=== PATIENT | female | born 1995 | race Caucasian/White ===

== ENCOUNTER 2021-05-02 16:25 | Observation (INO) | payer OTHER, SELFPAY ==
[2021-05-02 17:27] LABS: Basophils Percent Auto 0.3 % (0.2-1.2); Eosinophils Percent Auto 0.2 % (0-4.4); Hemoglobin 11.2 g/dL (12.0-15.0); Immature Granulocyte Absolute 0.14 K/mm3 (0.00-0.031); Immature Granulocyte Percent A 1.1 % (0-0.5); Lymphocytes Absolute Auto 0.59 K/mm3 (0.9-3.2); Lymphocytes Percent Auto 4.5 % (18.3-44.2); Mean Corpuscular HGB Conc 32.9 g/dl (32-36); Mean Corpuscular Hemoglobin 29.7 pg (26-34); Mean Corpuscular Volume 90.2 fl (80-100); Mean Platelet Volume 9.7 fl (7.4-10.4); Monocytes Absolute Auto 0.5 K/mm3 (0.1-0.6); Monocytes Percent Auto 4.1 % (2.6-8.5); Neutrophils Absolute Auto 11.9 K/mm3 (1.3-6.7); Neutrophils Percent Auto 89.8 % (45.5-73.1); Platelet Count Result 296 k/mm3 (150-375); Red Blood Count 3.77 M/mm3 (4.2-5.4); Red Cell Distribution Width 13.2 % (11.5-14.5); White Blood Count 13.3 K/mm3 (4.5-10.0)
[2021-05-02 17:28] VITALS: TEMP 37.3
[2021-05-02] MEDS: DEXTROSE 5%/LACTATED RINGERS 1,000 ML 150 ML IV CONT (17:29)
[2021-05-02] MEDS: ONDANSETRON INJ 4 MG/2 ML VIAL IV PUSH (17:30)
[2021-05-02] MEDS: FAMOTIDINE 20 MG/2 ML VIAL IV PUSH (17:30)
--- NOTE | 2021-05-02 17:42 | OBADM ---
This patient, Nayeli Galeana, admitted to the OB room [facility] for observation. Patient/family oriented to hospital policies and general routines including ID bracelet, bed and alarms, visiting hours, pain management, procedures, bathroom and other care routines, personal items, smoking policy, room service/diet, and visiting hours. Patient/Family are encouraged to report perceived risks to care and to ask questions if they do not understand what they are told or what they should do.
--- NOTE | 2021-05-02 17:45 | PC.NURSE ---
Pt came in for n/v and dfm, pt sees an OB in [place] but came here d/t it being closer to where she is living. She woke up around 0700 and started vomiting and has had a hard time drinking water today. She states she hasn't felt the baby move since this am. SAdela LARA called, orders received for IV of D5LR, zofran,pepcid,CBC,cmp.
[2021-05-02 17:46] LABS: Add Urine Microscopic? YES; Appearance Urine Cloudy (Clear); Bacteria Urine Trace /hpf; Bilirubin Urine Negative (Negative); Blood Urine Negative (Negative); Color Urine Yellow (Yellow); Glucose Urine UA Negative (Negative); Ketones Urine 2+ mg/dL (Negative); Leukocyte Esterase Ur 2+ LEU/UL (Negative); Mucus Urine Few /lpf; Nitrate Urine Negative (Negative); Protein Urine 2+ mg/dL (Negative); Specific Grav Ur 1.028 (1.001-1.035); Squamous Epithelial Cell Urine Many /hpf (Few); Urobilinogen Urine Negative mg/dL (<2.0); WBC Urine 31-50 /hpf
[2021-05-02 17:48] LABS: Alanine Aminotransferase 12 U/L (4-35); Alkaline Phosphatase 101 U/L (38-126); Anion Gap 11 mmol/L (8-16); Aspartate Amino Transferase 17 U/L (14-36); Bilirubin,Total 0.4 mg/dL (0.2-1.3); Blood Urea Nitrogen 5 mg/dL (7-17); Calcium 8.7 mg/dL (8.4-10.2); Carbon Dioxide 18 mmol/L (22-30); Chloride 106 mmol/L (98-107); Estimated Glomerular Filt Rate > 60; Glucose 97 mg/dL (65-110); Potassium 3.6 mmol/L (3.4-5.0); Sodium 135 mmol/L (137-145)
--- NOTE | 2021-05-02 18:30 | PC.NURSE ---
Tma Enriquez CNM on unit. UA results reviewed. Orders received to D/C home with Zofran prescription if no nausea or vomiting after eating.
--- NOTE | 2021-05-04 07:03 | PM.OBTRLD ---
OB - Triage/Final Diagnosis Visit Information Date of evaluation: 05/02/21 Reason for evaluation: other (nausea) Comments/Additional reasons for admission: I have assessed the risk for this patient, Nayeli Galeana, and determined that she would benefit from observation care. Evaluation Laboratory results: Laboratory Tests 05/02/21 05/02/21 05/02/21 17:14 17:14 17:14 WBC 13.3 H RBC 3.77 L Hgb 11.2 L Hct 34.0 L MCV 90.2 MCH 29.7 MCHC 32.9 RDW 13.2 Plt Count 296 MPV 9.7 Immature Gran % (Auto) 1.1 H Neut % (Auto) 89.8 H Lymph % (Auto) 4.5 L [place] % (Auto) 4.1 Eos % (Auto) 0.2 Baso % (Auto) 0.3 Lymph # (Auto) 0.59 L [place] # (Auto) 0.5 Eos # (Auto) 0.0 Baso # (Auto) 0.0 Abs Immat Gran (auto) 0.14 H Absolute Neuts (auto) 11.9 H Absolute Nucleated RBC 0.0 Nucleated RBC % 0.0 Sodium 135 L Potassium 3.6 Chloride 106 Carbon Dioxide 18 L Anion Gap 11 BUN 5 L Creatinine 0.30 L Estim Creat Clear Calc Not Reportable Estimated GFR > 60 Glucose 97 Calcium 8.7 Total Bilirubin 0.4 AST 17 ALT 12 Alkaline Phosphatase 101 Total Protein 7.0 Albumin 4.0 Urine Color Yellow Urine Appearance Cloudy H Urine pH 5.0 Ur Specific [place] 1.028 Urine Protein 2+ H Urine Glucose (UA) Negative Urine Ketones 2+ H Ur Blood (Man) Negative Urine Nitrate Negative Urine Bilirubin Negative Urine Urobilinogen Negative Leukocyte Esterase Rfl 2+ H Urine RBC 6-10 H Urine WBC 31-50 H Ur Squamous Epith Cells Many H Urine Bacteria Trace Urine Mucus Few H
== END 2021-05-02 19:40 | disposition home or self-care (01) ==
PROVIDERS: Advanced Practice Midwife; Admitting Provider Obstetrics & Gynecology; Visit Provider Obstetrics & Gynecology
DX: O99.891 Other specified diseases and conditions complicating pregnancy (principal); R11.0 Nausea; Z3A.28 28 weeks gestation of pregnancy
CPT/HCPCS: 36415; 80053; 81001; 85025; 87086; 87088; 96374; 96375; G0378; G0379; J2405; J7121

== ENCOUNTER 2021-11-17 15:03 | Emergency (ER) | payer OTHER, SELFPAY ==
[2021-11-17 15:07] VITALS: BP 160/59; PULSE 127; RESP 20; TEMP 37; O2SAT 97
--- NOTE | 2021-11-17 15:16 | ED.URI ---
HPI - URI/Sore Throat General Chief Complaint: Upper Respiratory Infection Stated Complaint: sore throat cough congestion Time Seen by Provider: 11/17/21 15:05 Source: patient and RN notes reviewed History of Present Illness HPI Narrative: Patient is a 26-year-old female who presents the urgent care with complaints of a sore throat for 3 days, cough and wheezing. Patient states she is also had a lot of postnasal drainage. Patient is currently breast-feeding. States that she has been out of her inhaler and the wheezing seems to be getting worse. Patient denies of any ill exposures, nausea, vomiting or fever. Patient states that she has been taking Sudafed without any improvement. No other acute complaints. No acute distress noted. Patient aware of the plan of care. Some parts of this dictation were generated by voice recognition software and may contain typographical and/or grammatical inaccuracies. Related Data Home Medications Medication Instructions Recorded Confirmed norethindrone (contraceptive) 0.35 0.35 mg PO DAILY 11/17/21 11/17/21 mg tablet Allergies Allergy/AdvReac Type Severity Reaction Status Date / Time amoxicillin Allergy Intermediate rash Verified 11/17/21 15:16 clavulanic acid Allergy Intermediate rash Verified 11/17/21 15:16 Penicillins Allergy Intermediate rash Verified 11/17/21 15:16 Review of Systems Review of Systems: CONSTITUTIONAL: Denies fever, chills, or sweats. EYES: Denies visual changes, redness, or discharge. ENT: Reports of postnasal drainage, congestion, sore throat CARDIOVASCULAR: Denies chest pain, palpitations, or edema. RESPIRATORY: Reports of cough and wheezing GASTROINTESTINAL: Denies abdominal pain, nausea, vomiting, or diarrhea. GENITOURINARY: Denies dysuria or hematuria. SKIN: Denies rash or itching. MUSCULOSKELETAL: Denies back pain, joint pain, or myalgia. NEUROLOGIC: Denies headache, numbness, or weakness. All other systems reviewed are negative, except as documented in HPI. PMFSH Comments At the time of my signature, I reviewed and agree with the nursing past medical, surgical, social, and family history. There is no relevant family history pertinent to the patient complaint. Exam Narrative: GENERAL: This is a well-nourished, well-developed patient, in no apparent distress. HEAD: normocephalic, atraumatic. EYES: PERRL. Sclera clear/white. Vision is grossly intact. EARS: External ears normal, auditory canals clear and without drainage, TMs normal without perforation. Hearing grossly intact. NOSE: External nose normal with no obvious nasal discharge. Mild bilateral erythemic nares with clear to yellow rhinorrhea THROAT: Mucous membranes moist, moderate postnasal drainage NECK: Neck supple, non-tender without lymphadenopathy CARDIOVASCULAR: Regular rate and rhythm without murmurs, gallops, or rubs. RESPIRATORY: Prior Tory wheezing throughout SKIN: warm, intact with no suspicious lesions or rash, good texture and turgor. NEURO: awake, alert, and oriented to person, place and time. There were no obvious focal neurologic abnormalities. EXTREMITIES: No clubbing, cyanosis, or edema. Course Course Level of Care: Express Care Visit Vital Signs Vital signs: Vital Signs Temperature 98.6 F 11/17/21 15:07 Pulse Rate 127 H 11/17/21 15:07 Respiratory Rate 20 11/17/21 15:07 Blood Pressure 160/59 H 11/17/21 15:07 Pulse Oximetry 97 11/17/21 15:07 Oxygen Delivery Room Air 11/17/21 15:07 Temperature 98.6 F 11/17/21 15:07 Pulse Rate 127 H 11/17/21 15:07 Respiratory Rate 20 11/17/21 15:07 Blood Pressure 160/59 H 11/17/21 15:07 Pulse Oximetry 97 11/17/21 15:07 Oxygen Delivery Room Air 11/17/21 15:07 Reviewed-patient is informed that they may have pre-hypertension or hypertension based on a blood pressure reading in the department. I recommend the patient call the primary care provider listed on their discharge instructions or a physician of
== END 2021-11-17 15:33 | disposition home or self-care (01) ==
PROVIDERS: Emergency Provider Nurse Practitioner Family
DX: J06.9 Acute upper respiratory infection, unspecified (principal); J02.9 Acute pharyngitis, unspecified; J45.909 Unspecified asthma, uncomplicated; D68.51 Activated protein C resistance
CPT/HCPCS: 87081; 87880; 99213; G0463

== ENCOUNTER 2022-05-15 10:14 | Emergency (ER) | payer OTHER, SELFPAY ==
[2022-05-15 10:16] VITALS: BP 145/83; PULSE 117; RESP 18; TEMP 36.3; O2SAT 99
--- NOTE | 2022-05-15 10:54 | ED.URI ---
HPI - URI/Sore Throat General Chief Complaint: Upper Respiratory Infection Stated Complaint: Sore Throat Time Seen by Provider: 05/15/22 10:54 Source: patient, family, RN notes reviewed and old records reviewed Mode of arrival: ambulatory Limitations: no limitations History of Present Illness HPI Narrative: 27-year-old female accompanied by sister and infant presents to [facility] with complaints of 5 day history of sore throat, cough, postnasal drainage, some right ear pain. Patient has been taking some Tylenol cold and flu OTC medication. Patient reports that cough is frequent is dry and hacking, denies any shortness of breath. Patient reports no known fevers, chills or sweats. MD elicited complaint: cough and sore throat Onset (ago): day(s) (5) Pain scale (0-10): 5 Able to tolerate fluids by mouth: Yes Treatments prior to arrival: other (Tylenol cold and flu med) Related Data Home Medications Medication Instructions Recorded Confirmed ergocalciferol (vitamin D2) 1,250 1,250 mcg PO DAILY 05/15/22 05/15/22 mcg (50,000 unit) capsule norethindrone (contraceptive) 0.35 0.35 mg PO DAILY 05/15/22 05/15/22 mg tablet Allergies Allergy/AdvReac Type Severity Reaction Status Date / Time amoxicillin Allergy Intermediate rash Verified 05/15/22 10:35 clavulanic acid Allergy Intermediate rash Verified 05/15/22 10:35 Penicillins Allergy Intermediate rash Verified 05/15/22 10:35 Review of Systems Review of Systems: CONSTITUTIONAL: Denies malaise, chills, sweats, or fever. EYES: Denies visual changes, redness, or discharge. ENT: Reports rhinorrhea, congestion, sinus pain,right otalgia and sore throat. CARDIOVASCULAR: Denies chest pain, palpitations, or edema. RESPIRATORY: Reports cough.? Denies dyspnea. GASTROINTESTINAL: Denies abdominal pain, nausea, vomiting, diarrhea SKIN: Denies rash or itching. MUSCULOSKELETAL: Denies myalgia. NEUROLOGIC: Denies headache. All systems reviewed & are unremarkable except as noted in HPI and below PMFSH Past Medical History Medical History (Updated 05/16/22 @ 11:48 by Chante Anderson NP) Asthma Surgical History Surgical History (Updated 03/30/23 @ 11:45 by Chante Anderson NP) S/P LASIK surgery of both eyes Social History Social History (Updated 05/16/22 @ 11:44 by Chante Anderson NP) Smoking status: Never smoker Alcohol intake: unknown Substance use: unknown Living arrangements: with family Gender identity (if verbalized by the patient): Female Comments At time of signature, agree with nursing past medical, surgical, social and family history. There is no relevant family history pertinent to the presenting complaint Exam Narrative: GENERAL: Well-appearing, well-nourished, and in no acute distress. HEAD: Normocephalic EYES: PERRLA, conjunctivae clear ENT: Nares clear, turbinates edematous and erythematous, clear discharge. Mucous membranes moist. TM pearly hobbs with dull light reflex bilaterally; no tragal tenderness. Oropharynx erythematous without lesions. Tonsils not enlarged and without exudate, no drooling, no hoarseness, no trismus, uvula midline.post nasal drainage NECK: Supple. No lymphadenopathy CHEST: Clear to auscultation, breath sounds equal. No wheezing, rhonchi, rales, or stridor. No respiratory distress, speaks in full sentences.dry cough, SAO2 99% on room air HEART: Regular rate and rhythm. No murmur heard. SKIN: Warm, dry, no rash. NEURO: Alert and oriented x3. PSYCH: Normal mood and affect Course Course Emergency Course: Patient is aware of diagnosis, understands and agrees to treatment plan.? Anticipatory guidance given.? Patient agrees to follow-up as directed and is aware of reasons to seek care at the emergency department. Portions of this record may have been created with voice recognition software Level of Care: Express Care Visit Vital Signs Vital signs: Vital Signs Temperature 36.3 C L
== END 2022-05-15 11:15 | disposition home or self-care (01) ==
PROVIDERS: Emergency Provider Registered Nurse; PCP Nurse Practitioner Family
DX: J06.9 Acute upper respiratory infection, unspecified (principal); R05.1 Acute cough; Z20.822 Contact with and (suspected) exposure to COVID-19; J45.909 Unspecified asthma, uncomplicated
CPT/HCPCS: 87081; 87426; 87804; 87880; 99213; C9803; G0463

== ENCOUNTER 2022-06-23 08:49 | Emergency (ER) | payer OTHER, SELFPAY ==
[2022-06-23 08:54] VITALS: BP 143/85; PULSE 96; RESP 20; TEMP 36.4; O2SAT 100
[2022-06-23 09:00] VITALS: BP 143/85; PULSE 96; RESP 20; TEMP 36.4; O2SAT 100
--- NOTE | 2022-06-23 09:38 | ED.GENADULT ---
HPI - General Adult General Chief complaint: Dental/Oral Stated complaint: Sever Mouth pain Source: patient Mode of arrival: ambulatory Limitations: no limitations History of Present Illness HPI narrative: Patient presents for evaluation of left upper dental pain for the last 3 days. Pain is constant, throbbing, 8/10 in severity. No fever, chills, nausea, vomiting. She tried taking Tylenol with mild improvement in her pain thereafter. No trismus or problems handling secretions. She does not smoke. No additional complaints or concerns. Related Data Home Medications Medication Instructions Recorded Confirmed ergocalciferol (vitamin D2) 1,250 1,250 mcg PO DAILY 05/15/22 06/23/22 mcg (50,000 unit) capsule norethindrone (contraceptive) 0.35 0.35 mg PO DAILY 05/15/22 06/23/22 mg tablet Allergies Allergy/AdvReac Type Severity Reaction Status Date / Time amoxicillin Allergy Intermediate rash Verified 06/23/22 08:59 clavulanic acid Allergy Intermediate rash Verified 06/23/22 08:59 Penicillins Allergy Intermediate rash Verified 06/23/22 08:59 Review of Systems Review of Systems: CONSTITUTIONAL: Denies fever, chills, or sweats. EYES: Denies visual changes, redness, or discharge. ENT: Reports left upper dental pain. Denies rhinorrhea, congestion, sore throat, or otalgia. CARDIOVASCULAR: Denies chest pain, palpitations, or edema. RESPIRATORY: Denies cough or dyspnea. GASTROINTESTINAL: Denies abdominal pain, nausea, vomiting, or diarrhea. GENITOURINARY: Denies dysuria or hematuria. SKIN: Denies rash or itching. MUSCULOSKELETAL: Denies back pain, joint pain, or myalgia. NEUROLOGIC: Denies headache, numbness, dizziness, or weakness. PSYCHIATRIC: Denies anxiety or depression. [facility] Past Medical History Medical History Asthma Fracture of tooth Surgical History Surgical History S/P LASIK surgery of both eyes Family History Family History (Updated 06/23/22 @ 09:40 by YURI Villatoro, [place]) Mother Family history non-contributory Social History Social History Smoking status: Never smoker Alcohol intake: unknown Substance use: unknown Living arrangements: with family Gender identity (if verbalized by the patient): Female Exam Narrative: GENERAL: Well-appearing, well-nourished, and in no acute distress. HEAD: Normocephalic, atraumatic. EYES: PERRLA and EOMI. ENT: Nares clear, no rhinorrhea or epistaxis. Mucous membranes moist. There is tenderness over tooth #15, which appears to have a fracture along posterior side of the tooth. No visible or palpable abscess. Oropharynx without tonsillar hypertrophy exudate or other lesions. Bilateral TMs pearly hobbs nonbulging NECK: Supple. No adenopathy or masses. No carotid bruits or JVD CHEST: Clear to auscultation. No respiratory distress. No wheezes rales or rhonchi HEART: Regular rate and rhythm. No murmur heard. Normal peripheral pulses. ABDOMEN: Soft, nontender, nondistended, normal active bowel sounds. EXTREMITIES: Normal range of motion. No edema. SKIN: Warm, dry, no rash. NEURO: No focal deficits. Alert and oriented x3. PSYCH: Normal mood and affect. Course Course Emergency Course: This is a 27-year-old female who presented for evaluation of left upper dental pain. She has evidence of dental fracture. Will treat with clindamycin and hydrocodone. Advised on considerations and she should monitor child closely. It sounds like she is only minimally at this time. Follow up with primary provider. Go to ER for worsening symptoms. Pt in agreement with plan of care. Level of Care: Express Care Visit Vital Signs Vital signs: Vital Signs Temperature 36.4 C 06/23/22 08:54 Pulse Rate 96 06/23/22 08:54 Respiratory Rate
== END 2022-06-23 09:45 | disposition home or self-care (01) ==
PROVIDERS: Emergency Provider Nurse Practitioner; PCP Nurse Practitioner Family
DX: S02.5XXA Fracture of tooth (traumatic), initial encounter for closed fracture (principal); X58.XXXA Exposure to other specified factors, initial encounter; J45.909 Unspecified asthma, uncomplicated
CPT/HCPCS: 99213; G0463

== ENCOUNTER 2024-11-06 10:55 | Emergency (ER) | payer OTHER, SELFPAY ==
--- OUTSIDE RECORDS SUMMARY | 2024-11-06 10:58 | XMS_ITS | Clinical Summary ---
Author Organization [facility] Address [address] [place] [address] Phone Care Team Providers Care Psychology Lecturer Name Role Phone Unavailable Primary Care Provider Unavailabl e Allergies Active Allergy Reactions Criticality Noted Date Comments Amoxicillin-Pot Clavulanate Anaphylaxis High 019 Penicillins Anaphylaxis High 05/01/2018 Valacyclovir Hcl Hives,Vomiting Medium 08/06/2019 Medications ibuprofen (MOTRIN) 800 MG Tablet Take 1 Tablet by mouth every 8 hours. 30 Tablet 06/02/2020 Active HYDROcodone-libra taminophen (NORCO) 5-325 MG Tablet Take 1-2 Tablets by mouth every 6 hours as needed for Moderate or more severe pain. 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 Immunizations Immunization Administration Dates Next Due DTAP VACCINE 03/30/2002,04/17/1998,1997 DTP Vaccine 1997,1997 HEP B/HIB Combined Vaccine 1997 Hepatitis A Vaccine, Pediatric/adolescent, 2 Dose Schedule 10/07/2011 Hepatitis A Vaccine,unspecif ied Formulation 08/27/2004 Hepatitis B Vaccine, Pediatric/adolescent 1997,1997 Hib Vaccine,unspecified Formulation 04/17/1998,0 1997,1997 Human Papillomavirus (HPV) 9 -valent Vaccine 11/01/2014 Human Papillomavirus Vaccine (HPV), quadrivalent 10/07/2011 Inactivated Polio Vaccine 03/30/2002,,1997,03/15 Influenza Vaccine, Quadrivalent, PF 04/30/2021,1 ,05/12/2019 MMR Vaccine 03/30/2002,01/25/1998 Meningococcal Vaccine 11/01/2014,10/07/2011 TB Skin Test 03/19/2018 TDAP Vaccine 04/30/2021,07/26/2011 Varicella Vaccine Live 03/25/2018,03/08/1998 Family History Medical History Relation Name Comments No Known Problems Brother 1 No Known Problems Brother 2 No Known Problems Father Hypertension Maternal Grandfather Diabetes Maternal Grandmother Other-comment Maternal Grandmother cyst o n ovary Anxiety disorder Mother Depression Mother Other-comment Mother cyst on ovary Cancer Paternal Grandfather Heart Attack Paternal Grandmother No Known Problems Sister 1 Other-comment Sister 2 cyst on ovary Relation Name Status Comments Brother 1 Alive Brother 2 Alive Father Alive Maternal Grandfather Alive Maternal Grandmother Alive Mother Alive Paternal Grandfather Paternal Grandmother Sister 1 Alive Sister 2 Alive Social History Tobacco Use Types Packs/Day Years Used Date Smoking Tobacco: Never Smokeless Tobacco: Never Tobacco Cessation:Counseling Given: No Alcohol Use Standard Drinks/Week Comments Never 0 (1 standard drink = 0.6 oz pur e alcohol) Rare AUDIT-C Answer Date Recorded Q1: How often do you have a drink containing alc ohol? 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 Not on file Not on file Last Filed Vital Signs Vital Sign Reading Time Taken Comments Blood Pressure 158/92 06/02/2020 5:40 PM CDT Pulse 95 06/02/2020 5:38 PM CDT Temperature 37 C (98.6 F) 06/02/2020 5:38 PM CDT Respiratory Rate 18 06/02/2020 5:38 PM CDT Oxygen Saturation 97% 06/02/2020 5:38 PM CDT Inhaled Oxygen Concentration - - Weight 74.8 kg (165 lb) 06/02/2020 5:38 PM CDT Height 162.6 cm (5' 4) 06/02/2020 5:38 PM CDT Body Mass Index 28.32 06/02/2020 5:38 PM CDT Plan of Treatment Health Maintenance Due Date Last Done Comments Hepatitis C Virus (HCV) Screening 1997 Pneumococcal Immunization Combined (1 of 2 - PCV) 01/10/2016 Pap Smear 08/05/2022 08/06/2019 Influenza Immunization (#1) 10/18/202404/17, 11/26/2019, 05/12/2019 SARS-COV-2 Immunization ( - season) 2024 DTaP/Tdap/Td Immunization (8 - Td or Tdap) 05/01/2031 04/30/2021, 07/26/2011, 03/30/2002, Additional history exists Respiratory Syncytial Virus (RSV) Immunization (Adult) (1 - 1-dose 75+ series) 01/10/2072 Hepatitis B Immunization Completed 998, 1997, 1997 Human Papillomavirus (HPV) Immunization Completed 11/01/2014, 10/07/2011 Meningococcal Immunization (ACWY) Completed 11/01/2014, 10/07/2011 Rotavirus Immunization Aged Out No lo nger eligible based on patient's age to complete this topic Procedures Procedure Name Priority Date/Time Associated Diagnosis Comments PATHOLOGY CYTOLOGY RULING TECHNICIAN Routine 08/06/2019 3:04 PM CDT Cervical cancer screening from Last 3 Months or Most Recently Relevant to Health Maintenance Results * PATHOLOGY CYTOLOGY RULING TECHNICIAN (08/06/2019 3:04 PM CDT) SPECIMEN ADEQUACY Satisfactory for evaluation. Endocervical/trans formation zone component is present. 08/26/2019 4:26 PM CDT [facility] GENERAL CATEGORY EPITHELIAL CELL ABNORMALITY. 08/26/2019 4:26 PM CDT [facility] DESCRIPTIVE DIAGNOSIS Low grade squamous intraepithelial lesion. 08/26/2019 4:26 PM CDT [facility] at 1626 CDT RECOMMENDATION Colposcopy and/or biopsy suggested. 08/26/2019 4:26 PM CDT [facility] AUTOMATED EXAMINATION Analysis of this sample has been assisted by an automated imaging and review system ([employer] System, [employer], [place], [place]). This case is further evaluated and finalized by a bench jeweler and/or pathologist. 08/26/2019 4:26 PM CDT [facility] DISCLAIMER The PAP smear is a screening test designed to detect cancerous or precancerous cells of the uterine cervix. It is one of the best means available for detection of cervical cancer but still carries an inherent false-negative rate. The consequences of a false-negative PAP result can be minimized by adhering to current screening guidelines. The following are general guidelines recommended by the ACS, ASCP, ASCCP, and ACOG: PAP testing is recommended every three years for women 21-29, Co-Testing, a PAP test in conjunction with an HPV (Human Papillomavirus) test for women ages 30-65, and no PAP or HPV testing for women under the age of 21 or older than 65 unless clinically indicated. 08/26/2019 4:26 PM CDT [facility] Case Report Gynecologic Cytology Report Case: [id number] Authorizing Provider: Tyrese Sahu MD Collected: 08/06/2019 03:04 PM Ordering Location: [facility] Received: 08/06/2019 03:04 PM [facility] - [facility]STETRICS [facility]ECOLOGY [facility] First Screen: Arabella Peterson Pathologist: Ezekiel Hidalgo Jr., MD Specimen: TP Screen, CERVIX/ENDOCERVIX 08/26/2019 4:26 PM CDT [facility] HPV Reflex if ASCUS? Yes 08/26/2019 4:26 PM CDT [facility] Other CERVIX UTERI STRUCTURE / Unknown Non-Phlebotomy Collection / Unknown 08/06/2019 3:04 PM CDT 08/06/2019 3:04 PM CDT us Tyrese Sahu MD PATHOLOGY/CYTOLOGY ORDERABLES Final Result Performing Organization Address City/State/[facility] Co de Phone Number [facility] [address] [place] [address], from Last 3 Months or Most Recently Relevant to Health Maintenance Insurance MEDICAID [employer] [facility]
--- OUTSIDE RECORDS SUMMARY | 2024-11-06 10:58 | XMS_ITS | Clinical Summary ---
Author Organization [facility] Address [address] [place] [address] Care Team Providers Care Professor Of Geology Name Role Phone Shereen Bravo Vicenta COPELAND Primary Care Provider Jolly Dubois DO Unavailable [phone] Allergies Active Allergy Reactions Criticality Noted Date Comments Acyclovir Hives,Vomiting Medium 11/24/2019 Amoxicillin-Pot Clavulanate Penicillins Anaphylaxis,Hives,Ra sh,Swelling High 03/19/2018 And vomitting And vomitting Medications albuterol HFA (PROVENTIL HFA,VENTOLIN HFA,PROAIR HFA) 90 mcg/actuation inhaler Inhale 2 puffs every 6 (six) hours as needed for wheezing Active acetaminophen (TYLENOL) 500 mg tablet Take one tab orally every 4 hours as needed for pain 07/22/19 22 Active miscellaneous medical supply misc 1 Units daily Lovenox needles 60 each 07/24/19 22 Active Additional Information Patient not taking.Reported on 01/15/2022 omeprazole (PriLOSEC) 40 mg capsule Take 1 capsule (40 mg total) by mouth nightly 30 capsule 3 12/21/19 23 Active ondansetron ODT (ZOFRAN-ODT) 4 mg disintegrating tablet Take 1 tablet (4 mg total) by mouth every 8 (eight) hours as needed for nausea or vomiting 30 tablet 1 01/02/20 23 Active Additional Information Patient not taking.Reported on 02/13/2023 docusate sodium (COLACE) 100 mg capsuleIndications :constipation,Stoo l Softener Take 1 capsule (100 mg total) by mouth 2 (two) times a day 60 capsule 1 03/14/19 24 Active HYDROcodone-acetam inophen (NORCO) 5-325 mg per tabletIndications: Pain Take 1 tablet by mouth every 4 (four) hours as needed for pain 10 tablet 03/14/19 24 Active ibuprofen (ADVIL,MOTRIN) 600 mg tabletIndications: Cramps Take 1 tablet (600 mg total) by mouth every 6 (six) hours as needed for pain 60 tablet 1 03/14/19 24 Active doxylamine-pyridox ine, vit B6, (DICLEGIS) 10-10 mg tablet Take 1 tablet by mouth nightly as needed for nausea 30 tablet 12/05/19 021 Discontin ued(Alter jassi therapy) Active Problems Problem Noted Date Diagnosed Date 39 weeks gestation of 03/13/2023 Request for sterilization 01/01/2023 Overview (01/01/2023): Medicaid form completed 01/01. Marijuana use 09/03/2022 Overview (09/03/2022): Occasionally in the morning to help with nausea. S/p counseling. Cessation encouraged. Heterozygous factor V Leiden affecting in first trimester, antepartum 12/18/2020 Overview (09/03/2022): No personal history of VTE. Mother was diagnosed after having a stillborn and does report a DVT that . Plan for same management as last - surveillance in and anticoagulation per ACOG guidelines. Encounter for supervision of normal in first trimester 12/12/2020 Overview (09/06/2022): Dated by PNL: A+/I/-/-, NR, Hep C NR GC/CT: neg UCx: neg Pap: NILM 01/15/22 Genetics: plan for quad screen MOF: breast MOC: to be addressed at a later visit Asthma, mild intermittent 05/16/2018 Contusion of chest 05/16/2018 Vaginal bleeding, abnormal 05/16/2018 Well woman exam (no gynecological exam) 05/17/19 19 Asthma 05/07/2018 Overview (09/03/2022): Well controlled. Rare inhaler use. Amenorrhea 05/07/2018 Resolved Problems Problem Noted Date Diagnosed Date Resolved Date Abnormal Pap smear of cervix 06/06/2021 09/03/2022 Overview (06/06/2021): LSIL July 2019, ASCUS -HPV this . Plan for repeat cytology in 1 year per ASCCP guidelines. Pelviectasis 04/02/2021 3 Overview (04/27/2021): Mild. Patient counseled and declined genetic testing. Resolved on repeat ultrasound. Acute cystitis without hematuria 12/12/2020 09/03/2022 Overview (01/15/2021): S/p treatment. BIJAL negative. Nausea and vomiting of , antepartum 09/03/2022 Overview (04/27/2021): Improvement with B6/Unisom. Zofran sent to pharmacy as well. Family history of factor V Leiden mutation 12/12/2020 09/03/2022 Overview (12/12/2020): Will test for mutation today. Pt denies any history of abnormal/excessive bleeding. Allergic reaction 03/30/2020 05/11/2021 Pelvic inflammatory disease 05/11/2019 04/27/2021 Assessment & Plan (05/11/2019 7:00 AM CDT): Suspected. Patient is allergic to penicillins which causes throat swelling. She is currently on clindamycin and tobramycin as the interchange for gentamicin. Will continue this at this time. P.r.n. Tylenol and ibuprofen for pain. Cultures are in process. Patient is okay if we screen her for HIV and syphilis as well, will order. Patient was also counseled on the importance of contraception despite her only having her period 4 times a year. Patient advised that if she is ovulating she can get . 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 05/11/2021 Immunizations Immunization Administration Dates Next Due DTP 1997,1997 DTaP 03/30/2002,04/17/1998,1997 HPV, Quadrivalent 10/07/2011 HPV9 11/01/2014 Hep A, Pediatric 10/07/2011 Hep A, Unspecified 08/27/2004 Hep B / HiB 1997 Hep B, Adolescent or Pediatric 1997,1996 HiB 04/17/1998,1997,1997 IPV 03/30/2002, 9,1997,03/15 Influenza, Quadrivalent, Spl it, Preservative Free, Intramuscular 04/30/2021,11/26/2019,05/12/2019 MMR 03/30/2002,01/25/1998 Meningococcal MCV4P (Menactra) 11/01/2014,2011 PPD TEST 03/19/2018 Tdap 04/30/2021,07/26/2011 Varicella 03/25/2018,03/08/1998 Surgical History Surgery Date Site/Laterality Comments LASIK Medical History Medical History Date Comments Asthma Factor 5 Leiden mutation, heterozygous Social History Tobacco Use Types Packs/Day Years Used Date Smoking Tobacco: Never Passive Smoke Exposure: Never Smokeless Tobacco: Never Tobacco Cessation:Counseling Given: No Alcohol Use Standard Drinks/Week Comments Not Currently 0 (1 standard drink = 0.6 oz pur e alcohol) [facility] Utilities Answer Date Recorded In the past 12 months has e [employer], oil, or water [email or web address] threatened to shut off services in your home? No 03/18/2023 Humiliation, Afraid, Rape, and Kick questionnair e Answer Date Recorded Within the last year, have y ou been afraid of your partner or ex-partner? No 03/18/2023 Within the last year, have y ou been humiliated or emotionally abused in other ways by your partner or ex-partner? No Within the last year, have y ou been kicked, hit, slapped, or otherwise physically hurt by your partner or ex-partner? No 03/18/2023 Within the last year, have y ou been raped or forced to have any kind of sexual activity by your partner or ex-partner? No 03/18/2023 Social Connection and Isolation Panel Answer Date Recorded In a typical week, how many times do you talk on the phone with family, friends, or neighbors? More than three times a week 03/18/2023 How often do you get togethe r with friends or relatives? More than three times a week 03/18/2023 How often do you attend chur or protestant services? Never 03/18/2023 Do you belong to any clubs o r organizations such as buddhism groups, unions, fraternal or athletic groups, or school groups? No 03/18/2023 How often do you attend meet ings of the clubs or organizations you belong to? Never 03/18/2023 Are you , , di vorced, , never , or living with a partner? Living with partner 03/18/2023 AUDIT-C Answer Date Recorded Q1: How often do you have a drink containing alcohol? Never 03/18/2023 Q2: How many drinks containi ng alcohol do you have on a typical day when you are drinking? Patient does not drink Q3: How often do you have si x or more drinks on one occasion? Never 03/18/2023 Overall Financial Resource Strain (CARDIA) Answe r Date Recorded How hard is it for you to pa y for the very basics like food, housing, medical care, and heating? Not hard at all 03/18/2023 PHQ-2 Answer Date Recorded PHQ-2 Total Score 0 03/18/2023 [facility] - Occupational Stress Questionnaire Answer Date Recorded Do you feel stress - tense, restless, nervous, or anxious, or unable to sleep at night because your mind is troubled all the time - these days? Not at all 03/18/2023 Exercise Vital Sign Answer Date Recorde d On average, how many days pe r week do you engage in moderate to strenuous exercise (like a brisk walk)? 4 days 03/18/2023 On average, how many minutes do you engage in exercise at this level? 40 min 03/18/2023 Hunger Vital Sign Answer Date Recorded Within the past 12 months, y ou worried that your food would run out before you got the money to buy more. Never true 03/18/19 24 Within the past 12 months, t he food you bought just didn't last and you didn't have money to get more. Never true 03/18/2023 PRAPARE - Transportation Answer Date Re corded In the past 12 months, has l ack of transportation kept you from medical appointments or from getting medications? No 02/19 In the past 12 months, has l ack of transportation kept you from meetings, work, or from getting things needed for daily living? No 03/18/2023 Housing Stability Vital Sign Answer Robert e Recorded In the last 12 months, was t here a time when you were not able to pay the mortgage or rent on time? Yes 03/18/2023 In the last 12 months, how many places have you lived? 1 03/18/2023 In the last 12 months, was t here a time when you did not have a steady place to sleep or slept in a alf (including now)? No 03/18/2023 [place] Depression Scale Answer Date Recorded [place] Depression Scale Total 2 03/18/2023 The thought of harming myself has occurred to me . Never 03/18/2023 Personal Safety Answer Date Recorded Have you ever been in or are you currently in a harmful physical or emotional relationship or is someone making you feel afraid or unsafe? Denies 06/29/2023 Comments No Sex and Gender Information Value Date Recorded Sex Assigned at Not on file Legal Sex Female 12:28 PM LAND SURVEYOR MANAGER Gender Identity Not on file Sexual Orientation Not on file Obstetrics History Para Term AB IAB SAB Ectopic Multiple Livin g Live Births 2 2 2 0 2 2 Date Outcome GA Total Labor Labor/2nd/3rd Weight Sex Type Anes PTL Millie A1 A5 Name Clin 2021 Term 39w 5d 10h 59m 9h 22m/1h 30m/0h 07m 3.779 kg (8 lb 5.3 oz) F Vag-Sp ont Epidur al N Livin g 7 9 MAIN, GIRLJ Conrado Saldaña MD Complications:None Delivery Location:[facility] ([facility]) 2023 Term 39w 1d 1h 48m 1h 34m/0h 12m/0h 02m 3.362 kg (7 lb 6.6 oz) F Vagina l Epidur al N Livin g 8 9 Jolly Reddy DO Complications:None Delivery Location:[facility] ([facility]) Last Filed Vital Signs Vital Sign Reading Time Taken Comments Blood Pressure 128/96 06/29/2023 11:21 AM CDT Pulse 70 06/29/2023 11:21 AM CDT Temperature 35.9 C (96.7 F) 06/29/2023 11:10 AM CDT Respiratory Rate 18 06/29/2023 11:10 AM CDT Oxygen Saturation 100% 06/29/2023 11:21 AM CDT Inhaled Oxygen Concentration - - Weight 68 kg (150 lb) 06/29/2023 11:10 AM CDT Height 162.6 cm (5' 4) 06/29/2023 11:10 AM CDT Body Mass Index 25.75 06/29/2023 11:10 AM CDT Plan of Treatment Health Maintenance Due Date Last Done Comments Pneumococcal vaccine <65 (1 of 2 - PCV) 01/10/2016 Cervical Cancer Screening 01/15/2023 01/15/2022, Regular Well Visit/Exam 18-64 01/15/2023 01/15/2022 Depression Screening 03/18/2024 03/18/2023, 03/14/2023, 01/17/2023, Additional history exists Influenza Vaccine (#1) 2024 , 11/26/2019, 05/12/2019 DTaP/Tdap/Td Vaccine (8 - Td or Tdap) 05/01/2031 04/30/2021, 07/26/2011, 03/30/2002, Additional history exists Hepatitis B Screening Completed 1997 , 1997, 1997 HPV Vaccines Completed 11/01/2014, 10/07/2011 Varicella Vaccines Completed 03/25/2018, 03/08/1998 Hepatitis C Screening Completed 09/03/2022, 021 Procedures Procedure Name Priority Date/Time Associated Diagnosis Comments HEPATITIS C ANTIBODY Routine 09/03/2022 3:35 PM CDT Encounter for supervision of normal in multigravida in first trimester 11 weeks gestation of PAP WITH REFLEX TO HIGH RISK HPV Routine 01/15/2022 9:58 AM LAND SURVEYOR MANAGER Screening for malignant neoplasm of the cervix from Last 3 Months or Most Recently Relevant to Health Maintenance Results * Hepatitis C antibody (09/03/2022 3:35 PM CDT) Hep C Ab Nonreactive Nonreactive STEVIE SHANKS Comment: Interpretive Data Nonreactive: Antibodies to HCV not detected. Does NOT exclude the possibility of recent exposure to HCV. Equivocal: Equivocal for HCV antibodies. Supplemental molecular testing will be automatically performed to determine infection status in accordance with current CDC screening recommendations. Reactive: Positive for HCV antibodies. This may represent current or past HCV infection. Supplemental molecular testing will be automatically performed to determine current infection status in accordance with current CDC screening recommendations. Interpretive data was last revised on 2019. Blood 09/03/2022 3:35 PM CDT 09/03/2022 7:15 PM CDT Jolly Dubois DO LAB MICROBIOLOGY - GENE [facility] ORDERABLES Final Result [facility] [id number] [place] [address] Department of Laboratories [place] [id number] * Pap with reflex to High Risk HPV (01/15/2022 9:58 AM LAND SURVEYOR MANAGER) Thin prep (Pap test) 01/15/2022 9:58 AM LAND SURVEYOR MANAGER 01/15/2022 9:58 AM LAND SURVEYOR MANAGER Narrative PATHOLOGY CH - 01/17/2022 2:37 PM LAND SURVEYOR MANAGER [facility] Department of Pathology [address] [place] [id number] Final Report Note to Patients: This report may contain a detailed description of human tissue sent by a health care provider to the laboratory for pathologic evaluation. The content of this report is essential for diagnosis and may provide important critical findings. This information may be unfamiliar to patients to review without a medical professional present. It is advised that the patient review this report in the presence of a health care provider who can answer questions and explain the details. Patient Name: SEEMA GALEANA Address: [address] [place], [place] [address] Gender: F : 1995 (Age: 27) Service: Laboratory Location: Hospital #: [id number] Patient Type: SPECIMEN Taken: 01/15/2022 Received: 01/15/2022 Accessioned:: 01/16/2022 Reported: 01/17/2022 Physician(s): Kayla Patino D.O. Diagnosis: Source of Specimen: Imaged Thinprep Pap Test w/ Reflex HPV - Licensed Optical Dispenser Cytologic Material Specimen Adequacy: - Satisfactory for evaluation; endocervical/transformation zone component present General Category: - Negative for intraepithelial lesion or malignancy TONYA Kumar(ASCP)TONYA Brady(ASCP) Report Electronically Reviewed and Signed Out By TONYA Brady(ASCP) 01/17/2022 14:37:05Specimen(s) Received: A: Imaged Thinprep Pap Test w/ Reflex HPV - Licensed Optical Dispenser Cytologic Material Clinical History: Menstrual History: Post-menopausal Previous Abnormal Pap: 11/2020 ASCUS The Pap test is a screening test used to aid in the detection of cervical cancer and its precursors. It should not be the sole means by which malignant and premalignant lesions are diagnosed. Both false negative and false positive results may occur. It also has poor sensitivity for the detection of endometrial lesions and should not be used to evaluate suspected endometrial abnormalities. For these reasons it is most important to obtain Pap tests at regular intervals. The performance characteristics of some immunohistochemical stains, fluorescence in-situ hybridization tests and immunophenotyping by flow cytometry cited in this report (if any) were determined by the Surgical Pathology Department at [facility] as part of an ongoing senior quality assurance analyst program and in compliance with federally mandated regulations drawn from the Clinical Laboratory Improvement Act of 1988 (CLIA '88). Some of these tests rely on the use of analyte specific reagents and are subject to specific labeling requirements by the US Food and Drug Administration. Such diagnostic tests may only be performed in a facility that is certified by the Department of Health and Human Services as a high complexity laboratory under CLIA '88. The FDA has determined that such clearance or approval is not necessary. This test is used for clinical purposes. It should not be regarded as investigational or for research. Nevertheless, federal rules concerning the medical use of analyte specific reagents require that the following disclaimer be attached to the report: This test was developed and its performance characteristics determined by the Surgical Pathology Department [facility]. It has not been cleared or approved by the U. S. Food and Drug Administration. Jolly Dubois DO LAB CYTOLOGY ORDERABLES Final Result [facility] [address] [place] [address] from Last 3 Months or Most Recently Relevant to Health Maintenance Insurance AET[employer] [facility] IDPA [facility] Member Subscriber Plan / Payer (Ef fective 2020-Present) Name:Seema Galeana Relation to Subscriber:Self Name:Seema Galeana Payer ID:[id number] (NAIC) Group ID:Not on file Type:MEDICAID RISK OTHER Address: [facility] [id number] [place] [id number] Advance Directives For more information, please contact: [phone] * Full Code (Latest Code Status on File) Date Activated Date Inactivated Comments 03/13/2023 3:34 PM 03/14/2023 9:23 PM * Full Code Date Activated Date Inactivated Comments 03/13/2023 6:19 AM 03/13/2023 3:34 PM Full CPR in case of cardiopulmonary arrest * Full Code Date Activated Date Inactivated Comments 07/20/2021 2:58 AM 07/21/2021 7:45 PM * Full Code Date Activated Date Inactivated Comments 07/19/2021 3:09 PM 07/20/2021 2:58 AM Full CPR in ca se of cardiopulmonary arrest * Full Code Date Activated Date Inactivated Comments 05/11/2019 6:43 AM 05/12/2019 8:49 PM Care Teams Professor Of Geology Relationship Specialty Start Date End Date Shereen Bravo NP [address] [place] [address] PCP - General Nurse Practitioner 03/06/22 Jolly Dubois DO [address] [address] Consulting Physician Obstetrics and Gynecology 08/28/22
--- OUTSIDE RECORDS SUMMARY | 2024-11-06 10:59 | XMS_ITS | Clinical Summary ---
Author Organization [facility] Address [address] [place] [address] Care Team Providers Care Service Station Helper Name Role Phone Unavailable Primary Care Provider Unavailabl e Allergies Active Allergy Reactions Criticality Noted Date Comments Amoxicillin-Pot Clavulanate Hives 03/26/19 22 And vomitting Penicillins Hives 03/26/2021 And vomitting Medications No known medications Active Problems Estimated Date of Delivery Comme nts Yes 07/20/2021 No known active problems Social History Tobacco Use Types Packs/Day Years Used Date Smoking Tobacco: Never Smokeless Tobacco: Never Alcohol Use Standard Drinks/Week Comments Defer 0 (1 standard drink = 0.6 oz pur e alcohol) Alcohol Use Answer Date Recorded Frequency of Alcohol Consumption Not on file 03/26/2021 Average Number of Drinks Not on file 022 Frequency of Binge Drinking Not on file 08/2021 Alcohol Use Status Defer 03/26/2021 Average alcohol consumption Not on file 08/2021 Estimated Date of Delivery Comme nts Yes 07/20/2021 Sex and Gender Information Value Date Recorded Sex Assigned at Not on file Legal Sex Female 3:06 PM CELEBRITY MANAGER Gender Identity Not on file Sexual Orientation Not on file Last Filed Vital Signs Vital Sign Reading Time Taken Comments Blood Pressure 122/76 03/26/2021 3:18 PM CELEBRITY MANAGER Pulse 110 03/26/2021 3:18 PM CELEBRITY MANAGER Temperature 36.3 C (97.3 F) 03/26/2021 3:18 PM CELEBRITY MANAGER Respiratory Rate 18 03/26/2021 3:18 PM CELEBRITY MANAGER Oxygen Saturation 98% 03/26/2021 3:18 PM CELEBRITY MANAGER Inhaled Oxygen Concentration - - Weight 78.8 kg (173 lb 12.8 oz) 03/26/2021 3:18 PM CELEBRITY MANAGER Height 162.6 cm (5' 4) 03/26/2021 3:18 PM CELEBRITY MANAGER Body Mass Index 29.83 03/26/2021 3:18 PM CELEBRITY MANAGER Plan of Treatment Health Maintenance Due Date Last Done Comments HIV Screening 1995 Hepatitis C Screening ages 1 8 to 79 once 1995 MMR VACCINES (1 of 1 - Stand raffaele series) 1998 YEARLY WELLNESS EXAM 01/10/2000 DTaP/Tdap/Td Vaccines (1 - Tdap) 01/10/2004 DEPRESSION SCREENING 2009 Varicella Vaccine (1 of 2 - 13+ 2-dose series) 2010 HPV VACCINES (1 - 3-dose series) 01/10/2012 ADULT TETANUS 01/10/2016 HEPATITIS B VACCINES (1 of 3 - 19+ 3-dose series) 01/10/2016 CERVICAL CANCER SCREENING 2018 Influenza Vaccine 09/17/2024 05/12/2019 COVID-19 Immunization (1 - 2 season) 2024 Zoster Vaccine (Recombinant Vaccine) (1 of 2) 2047 RSV Vaccines (1 - 1-dose 75+ series) 01/10/2072 HEPATITIS A VACCINES Aged Out No long er eligible based on patient's age to complete this topic HIB VACCINES Aged Out No longer eligi ble based on patient's age to complete this topic IPV VACCINES Aged Out No longer eligi ble based on patient's age to complete this topic MENINGOCOCCAL VACCINE Aged Out No charles howie eligible based on patient's age to complete this topic Meningococcal B Vaccine Aged Out No l onger eligible based on patient's age to complete this topic Pneumococcal Vaccine: Peds t o 50 & At-Risk Patients Aged Out No longer eligible b ased on patient's age to complete this topic ROTAVIRUS VACCINES Aged Out No longer eligible based on patient's age to complete this topic Insurance [facility]
[2024-11-06 11:06] VITALS: BP 127/86; PULSE 74; RESP 16; TEMP 36.4; O2SAT 99
--- NOTE | 2024-11-06 12:10 | ED.GENADULT ---
HPI - General Adult General Chief complaint: Dental/Oral Stated complaint: Tooth pain Source: patient Mode of arrival: ambulatory Limitations: no limitations History of Present Illness HPI narrative: Patient presents for evaluation of right upper dental pain for last 2 weeks. She states she fractured a tooth in that area about three weeks ago. She has experienced constant pain in the affected area, throbbing, 9/10 in severity. She denies any fever, chills, nausea or vomiting. She has applied heat and ice to the affected area. She has taken tylenol without much improvement. She tried to get in with a dentist but they cannot see her until next year. She states she cannot take ibuprofen due to clotting disorder. Related Data Allergies Allergy/AdvReac Type Severity Reaction Status Date / Time amoxicillin Allergy Intermediate rash Verified 11/06/24 11:05 clavulanic acid Allergy Intermediate rash Verified 11/06/24 11:05 Penicillins Allergy Intermediate rash Verified 11/06/24 11:05 Review of Systems Review of Systems: CONSTITUTIONAL: Denies fever, chills, or sweats. EYES: Denies visual changes, redness, or discharge. ENT: Reports right upper dental pain. Denies rhinorrhea, congestion, sore throat, or otalgia. CARDIOVASCULAR: Denies chest pain, palpitations, or edema. RESPIRATORY: Denies cough or dyspnea. GASTROINTESTINAL: Denies abdominal pain, nausea, vomiting, or diarrhea. GENITOURINARY: Denies dysuria or hematuria. SKIN: Denies rash or itching. MUSCULOSKELETAL: Denies back pain, joint pain, or myalgia. NEUROLOGIC: Denies headache, numbness, dizziness, or weakness. PSYCHIATRIC: Denies anxiety or depression. [facility] Past Medical History Medical History Asthma Fracture of tooth Surgical History Surgical History S/P LASIK surgery of both eyes Family History Family History (Updated 06/23/22 @ 09:40 by YURI Villatoro, KER[place]) Mother Family history non-contributory Social History Social History Smoking status: Never smoker Alcohol intake: unknown Substance use: unknown Living arrangements: with family Gender identity (if verbalized by the patient): Female Exam Narrative: GENERAL: Well-appearing, well-nourished, and in no acute distress. HEAD: Normocephalic, atraumatic. EYES: PERRLA and EOMI. ENT: Nares clear, no rhinorrhea or epistaxis. Mucous membranes moist. Oropharynx without tonsillar hypertrophy exudate or other lesions. Tooth #5, 6, 7 are all fractured. No visible or paloable abscess. Bilateral TMs pearly hobbs nonbulging NECK: Supple. No adenopathy or masses. No carotid bruits or JVD CHEST: Clear to auscultation. No respiratory distress. No wheezes rales or rhonchi HEART: Regular rate and rhythm. No murmur heard. Normal peripheral pulses. ABDOMEN: Soft, nontender, nondistended, normal active bowel sounds. EXTREMITIES: Normal range of motion. No edema. SKIN: Warm, dry, no rash. NEURO: No focal deficits. Alert and oriented x3. PSYCH: Normal mood and affect. Course Course Emergency Course: This is a 29 year old female who presented for evaluation of right upper dental pain. She has several dental fractures present. Will discharge with clindamycin and Ultram. Follow-up with dentist. Go to the ER for worsening symptoms. Patient in agreement with plan of care. Level of Care: Express Care Visit Vital Signs Vital signs: Vital Signs Temperature 36.4 C 11/06/24 11:06 Pulse Rate 74 11/06/24 11:06 Respiratory Rate 16 11/06/24 11:06 Blood Pressure 127/86 11/06/24 11:06 Pulse Oximetry 99 11/06/24 11:06 Oxygen Delivery Room Air 11/06/24 11:06 Temperature 36.4 C 11/06/24 11:06 Pulse Rate 74 11/06/24 11:06 Respiratory Rate 16 11/06/24 11:06 Blood Pressure 127/86 11/06/24 11:06 Pulse Oximetry 99 11/06/24 11:06 Oxygen Delivery Room Air 11/06/24 11:06 Medical Decision Making Vital Signs Vital Signs: Vital Signs Temperature 36.4 C 11/06/24 11:06 Pulse Rate 74 11/06/24 11:06 Respiratory Rate 16 11/06/24 11:06 Blood Pressure 127/86 11/06/24 11:06 Pulse Oximetry 99 11/06/24 11:06 Oxygen Delivery Room Air 11/06/24 11:06 Temperature 36.4 C 11/06/24 11:06 Pulse Rate 74 11/06/24 11:06 Respiratory Rate 16 11/06/24 11:06 Blood Pressure 127/86 11/06/24 11:06 Pulse Oximetry 99 11/06/24 11:06 Oxygen Delivery Room Air 11/06/24 11:06 Discharge Plan Discharge Clinical Impression: Fracture of tooth Patient Disposition: Home Condition: Stable Instructions: Antibiotic Form, Toothache (ED) Patient Language: Divehi Prescriptions: New clindamycin HCl [Cleocin HCl] 300 mg capsule 300 mg PO Q6H 10 Days Qty: 40 0RF tramadol 50 mg tablet 50 mg PO Q6H PRN (Reason: pain) Qty: 15 0RF Follow-up/Referrals: Bravo,Shereen Morales APN [Primary Care Provider, Unknown] Time of Disposition: 12:09
== END 2024-11-06 12:12 | disposition home or self-care (01) ==
PROVIDERS: Emergency Provider Nurse Practitioner; PCP Nurse Practitioner Family
DX: S02.5XXA Fracture of tooth (traumatic), initial encounter for closed fracture (principal); X58.XXXA Exposure to other specified factors, initial encounter; J45.909 Unspecified asthma, uncomplicated
CPT/HCPCS: 99213; G0463